=== PATIENT | male | born 1965 | race Hispanic/Latino ===

== ENCOUNTER → 2022-10-18 | Outpatient (CLI) | payer OTHER | END | disposition home or self-care (01) | LOC: OIH 08:24 | PROVIDERS: ATTEND Internal Medicine | DX: Z13.6 Encounter for screening for cardiovascular disorders (principal) | CPT/HCPCS: 75571 ==

== ENCOUNTER 2024-03-07 15:27 | Emergency (ER) | payer OTHER ==
[~2024-03-07] VITALS: Ht 162.6 cm; Wt 77.1 kg
[2024-03-07] MEDS: HYDROCODONE/ACETAMINOPHEN 5/325 MG TAB PO ONE (15:54)
[2024-03-07] MEDS: CYCLOBENZAPRINE HCL 10 MG TABLET PO ONE (15:54)
[2024-03-07 16:01] VITALS: BP 142/85; PULSE 101; RESP 16; O2SAT 100
[2024-03-07] MEDS ORDERED: IBUP-2077 PO (16:27)
[2024-03-07] MEDS ORDERED: CYCL-309 PO (16:27)
== END 2024-03-07 17:03 | disposition home or self-care (01) ==
LOC: EDH 15:27
DX: S46.911A Strain of unspecified muscle, fascia and tendon at shoulder and upper arm level, right arm, initial encounter (principal); E78.00 Pure hypercholesterolemia, unspecified; K21.9 Gastro-esophageal reflux disease without esophagitis; Z88.0 Allergy status to penicillin; Z90.89 Acquired absence of other organs; X50.0XXA Overexertion from strenuous movement or load, initial encounter; Y93.89 Activity, other specified; Y92.89 Other specified places as the place of occurrence of the external cause; Y99.8 Other external cause status
CPT/HCPCS: 73030

== ENCOUNTER → 2024-03-07 | Outpatient (CLI) | payer OTHER ==
[~2024-03-07] MED LIST: CYCL-309 PO; IBUP-2077 PO
== END | disposition home or self-care (01) ==
LOC: RAH 14:58
PROVIDERS: ATTEND Internal Medicine
DX: M54.12 Radiculopathy, cervical region (principal)
CPT/HCPCS: 72040